=== PATIENT | female | born 1990 | race Asian ===

== ENCOUNTER 2020-10-21 07:40 | Inpatient (IN) ==
[2020-10-21] MEDS ORDERED: LACTATED RINGER'S 500 ML IV ONE (11:07)
[2020-10-21] MEDS ORDERED: LACTATED RINGER'S 1,000 ML IV SCH (11:15)
[2020-10-21] MEDS ORDERED: PROMETHAZINE HCL INJ 25 MG/ML 1 ML VIAL IM STA (11:16)
[2020-10-21] MEDS ORDERED: MoRPHine SULFATE 10 MG/ML CARP/VIAL IM STA (11:17)
--- NOTE | 2020-10-21 11:20 | History & Physical Report ---
Date of Service October 21, 2020 Assessment & Plan (1) Prolonged latent phase of labor: (2) with 38 completed weeks gestation: Patient is refusing to leave. She notes she can't go home, can't rest, too painful. Continues to ask for an epidural. My conversation with them occurred using an spanish interpreter/translator via the ipad. Discussed that at 38 6/7 weeks with reassuring fetus , there is no indication for augmentation given concerns for flm. We discussed that she cannot have an epidural until she is in labor. discussed I could send her home with a Vistaril home pack. She notes she just can't do that. Offered her a therapeutic morphine rest. Discussed that the contractions for labor must be closer, at least 5 min apart or less, lasting for at least a minute, and must be much more painful. She notes she just cannot do that. Discussed r/b of therapeutic rest. She wishes to do that. Fetus is category one. History of Present Illness Chief Complaint: painful contractions Primary Care Provider: Sarita Awad MD Patient is a 30yoRussianf with IUP at 38 6/7 weeks who presents to labor and delivery unannounced c/o contractions. Notes started at 1:30 this am. NOtes a 10/10 since then. Unable to sleep. No rest. no vb/lof. +fm. complicated by poorly compliant treatment of GDM. 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 Had genetics and mfm consult and did not have an amnio. Patient was monitored well over two hours. She has very irregular contractions q5-10 min, palpate mild but she is writhing all over the bed. Patient notes she is unable to go home with this and asking for an epidural. Allergies Allergy/AdvReac Type Severity Reaction Status Date / Time No Known Allergies Allergy Verified 10/17/20 10:58 Home Medications Medication Instructions Recorded Confirmed Type prenat.vits,brad,[id number] 1 tab PO DAILY 03/14/20 10/21/20 History acetone (urine) test #50 ea 07/07/20 10/17/20 Rx blood sugar diagnostic #150 ea 07/07/20 10/17/20 Rx blood-glucose meter #1 ea 07/07/20 10/17/20 Rx lancets 33 gauge #150 ea 07/07/20 10/17/20 Rx breast pump #1 ea 09/06/20 10/17/20 Rx Compression stockings #2 ea 10/17/20 10/17/20 Rx Patient History Medical History Acid reflux Encounter for anatomic survey Gestational diabetes mellitus (GDM) affecting first Family History Aunt Diabetes Father Stomach cancer Social History Smoking Status: Never smoker Hx Alcohol Use: No Hx Substance Use: No Preferred Language: Albanian Communication Ability: Effective Thermal Technician Required: No Beliefs That Will Affect Care: None marital status: marital status details: Rylee Virgen (30) [phone] Current Living Situation: Spouse Current Living Situation Comment: lives with spouse, no pets current occupational status: employed 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 [employer] Other Information That Helps Us Care for You: No Feels Safe at Home: Yes Safety Concerns: Feels Safe At This Time OB History g1--present 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
[2020-10-21] MEDS ORDERED: LACTATED RINGER'S 1,000 ML IV PRN (11:56)
[2020-10-21] MEDS ORDERED: OXYTOCIN 30 UNITS/500 ML BAG IV PRN ×3 (11:56→22:53)
[2020-10-21] MEDS ORDERED: ePHEDrine sulfate 50 MG/ML AMP ONE (12:08)
[2020-10-21] MEDS ORDERED: SODIUM CHLORIDE 0.9% INJ 10 ML VIAL ONE (12:08)
[2020-10-21] MEDS ORDERED: BUPIVACAINE 0.25% 30 ML VIAL ONE (12:09)
[2020-10-21] MEDS ORDERED: fentaNYL citrate 100 MCG/2 ML VIAL ONE (12:09)
[2020-10-21] MEDS ORDERED: fentaNYL 2MCG/ML ROPIVACAINE 1.25MG/ML 100 ML BAG EPI ONE (12:10)
--- NOTE | 2020-10-21 12:14 | Labor Progress Brief Note ---
Date of Service October 21, 2020 Subjective Patient continues to be very uncomfortable Assessment & Plan (1) with 38 completed weeks gestation: Admission and Anticipated Discharge Date Admission Date: October 21, 2020 Given that the patient has shown cervical change, will admit for labor. Epidural. Pitocin/arom as indicated. fetus category one. Anticipate . Physical Exam Constitutional: WD/WN, vitals as above Psychiatric: A+Ox3, euthymic affect Genitourinary: cx--3-4/90/-2 toco--irregular efm--130s with mod variability, accels to 160s, no decels Results & Data ([facility]) Vital Signs (Past 12 Hours) Vital Signs Temp Pulse Resp BP 10/21/20 11:37 37.4 C 77 18 120/65 10/21/20 07:53 36.7 C 20 Coding Level of Care Code None Diagnoses with 38 completed weeks gestation Z3A.38
[2020-10-21 12:31] LABS: Hematocrit (blood only) 42.9 % (37-47); Mean Corpuscular Hemoglobin 33.6 pg (25-34); Mean Corpuscular Volume 96.2 fL (80-100); Mean Platelet Volume 10.7 fL (7.4-10.4); Platelet Count 165 K/uL (130-400); RDW Coefficient of Variation 14.9 % (11.5-14.5); RDW Standard Deviation 52.7 fL (36.4-46.3); Red Blood Count 4.46 M/uL (4.2-5.4); White Blood Count 20.23 K/uL (4.8-10.8)
[2020-10-21] MEDS ORDERED: ONDANSETRON INJ 2 MG/ML 2 ML VIAL IV PRN (12:51)
[2020-10-21] MEDS ORDERED: ePHEDrine sulfate 50 MG/ML AMP IV PRN (12:51)
[2020-10-21] MEDS ORDERED: NALOXONE HCL 1 MG in SODIUM CHLORIDE 0.9% 1000ML 1,000 ML IV PRN (12:51)
[2020-10-21] MEDS ORDERED: diphenhydrAMINE 50 MG/ML VIAL IV PRN (12:51)
[2020-10-21] MEDS ORDERED: fentaNYL 2MCG/ML ROPIVACAINE 1.25MG/ML 100 ML BAG EPI PRN (12:51)
[2020-10-21] MEDS ORDERED: NALOXONE HCL 0.4 MG/1 ML VIAL/CARP IV PRN (12:51)
--- NOTE | 2020-10-21 12:56 | Anesthesiology Consultation ---
Date of Service October 21, 2020 Covid 19 negative today. Assessment & Plan Chart Review Chart Review: Patient NOT seen in Pre Admission Testing and Acceptable Risk for Labor Epidural Consults Requested none ASA ASA2 Proposed Anesthesia Anesthesia Type: Labor Epidural and CSE Risk / Benefits Reviewed With: PT / POA / Parent / Guardian, Accepts Plan and Informed Consent Obtained History Height/Weight Height: 5 ft 6.93 in Weight: 73.936 kg Allergies Allergy/AdvReac Type Severity Reaction Status Date / Time No Known Allergies Allergy Verified 10/17/20 10:58 Medications Home Medications Medication Instructions Recorded Confirmed Last Taken prenat.vits,brad,zbb-tbgt-wuccs 1 tab PO DAILY 03/14/20 10/21/20 10/20/20 20:00 acetone (urine) test #50 ea 07/07/20 10/17/20 Unknown blood sugar diagnostic #150 ea 07/07/20 10/17/20 Unknown blood-glucose meter #1 ea 07/07/20 10/17/20 Unknown lancets 33 gauge #150 ea 07/07/20 10/17/20 Unknown breast pump #1 ea 09/06/20 10/17/20 Unknown Compression stockings #2 ea 10/17/20 10/17/20 Unknown Active Medications Generic Name Dose Route Start Last Admin Trade Name Freq PRN Reason Stop Dose Admin Lactated Ringer's 1,000 mls @ 125 mls/hr 10/21/20 11:15 10/21/20 11:49 Lr IV 11/20/20 11:14 999 mls/hr .Q8H GIOVANNI Administration NPO Date Last Intake of Fluids: 10/21/20 Time Last Intake of Fluids: 12:00 Date Last Intake of Solids: 10/20/20 Time Last Intake of Solids: 21:00 Past Medical History Medical History Acid reflux Encounter for anatomic survey Gestational diabetes mellitus (GDM) affecting first Exercise / Class Metabolic Activity II 4-5 Yardwork/Stairs/Walk up hill Past Family History Family History Aunt Diabetes Father Stomach cancer Past Anesthesia History No Hx of Anesthesia Complications and No Family Hx of Anesthesia Complications History of PONV No Hx of PONV and No Hx of Motion Sickness Social History Smoking Status: Never smoker Hx Alcohol Use: No Hx Substance Use: No Review of Systems no chest pain or sob Physical Exam Vital Signs Last Vital Signs Temp 37.4 C 10/21/20 11:37 Pulse 82 10/21/20 12:54 Resp 18 10/21/20 11:37 BP 137/97 10/21/20 12:54 Pulse Ox 99 10/21/20 12:53 ENMT Mouth: no TMJ abnormality Thyromental Distance: > or= 3.5 Finger Breadths Mallampati Class: II Neck normal visual inspection Respiratory normal respiratory effort Auscultation: lungs clear to auscultation bilaterally Cardiovascular Rate/Rhythm: regular rate and regular rhythm Musculoskeletal Spine: normal cervical ROM Neurologic moves all extremities Psychiatric Orientation: alert and oriented x 3 Testing Laboratory Results 10/21/20 12:19
--- NOTE | 2020-10-21 15:04 | Labor Progress Brief Note ---
Date of Service October 21, 2020 Subjective comfortable with epidural Assessment & Plan (1) Normal labor: Admission and Anticipated Discharge Date Admission Date: October 21, 2020 Making progress despite poor contraction pattern. Will start pitocin to get a better contractions pattern. I cannot palpate a membrane. We have seen no fluid, but I think she is ruptured. On questioning, ? lof at 3-4am? Noneth eless, she is laboring and fetus is category one. anticipate . Physical Exam Constitutional: WD/WN, vitals as above Psychiatric: A+Ox3, euthymic affect Genitourinary: cx--5/100/-1 toco--difficult tracing, picking up occasional contractions. efm--125 with mod varibility, accels to 160s, no decels Results & Data ([facility]) Vital Signs (Past 12 Hours) Vital Signs Temp Pulse Resp BP Pulse Ox 10/21/20 14:58 84 97 10/21/20 14:53 82 99 10/21/20 14:48 76 98 10/21/20 14:43 76 119/67 97 10/21/20 14:38 75 98 10/21/20 14:33 81 125/67 98 10/21/20 14:28 78 98 10/21/20 14:23 83 98 10/21/20 14:22 81 115/69 10/21/20 14:18 79 98 10/21/20 14:13 94 H 121/67 97 10/21/20 14:08 92 H 96 10/21/20 14:03 93 H 97 10/21/20 14:02 91 H 134/72 10/21/20 13:58 86 97 10/21/20 13:53 96 H 97 10/21/20 13:52 95 H 117/67 10/21/20 13:48 87 97 10/21/20 13:43 85 99 10/21/20 13:42 83 108/59 L 10/21/20 13:38 87 98 10/21/20 13:33 90 133/72 98 10/21/20 13:28 94 H 98 10/21/20 13:23 87 98 10/21/20 13:20 86 110/64 10/21/20 13:19 85 89 L 10/21/20 13:18 92 H 99 10/21/20 13:16 85 117/65 10/21/20 13:13 88 100 10/21/20 13:12 83 115/59 L 10/21/20 13:08 81 134/78 99 10/21/20 13:04 81 136/75 10/21/20 13:03 79 100 10/21/20 13:00 37.0 C 85 18 136/66 10/21/20 12:58 71 100 10/21/20 12:54 82 137/97 10/21/20 12:53 81 99 10/21/20 11:37 37.4 C 77 18 120/65 10/21/20 07:53 36.7 C 20 Coding Level of Care Code None Diagnoses Normal labor O80; Z37.9
--- NOTE | 2020-10-21 17:57 | Labor Progress Brief Note ---
Date of Service October 21, 2020 Subjective comfortable Assessment & Plan (1) Normal labor: Admission and Anticipated Discharge Date Admission Date: October 21, 2020 labor down for about an hour and then plan to begin pushing. fetus category one. anticipate . Physical Exam Constitutional: WD/WN, vitals as above Psychiatric: A+Ox3, euthymic affect Genitourinary: cx--c/c/+1 toco--q2-3, pit at 8 efm--120s with mod variaiblity, accels to 160s, no decels Results & Data ([facility]) Vital Signs (Past 12 Hours) Vital Signs Temp Pulse Resp BP Pulse Ox 10/21/20 17:53 91 H 98 10/21/20 17:48 86 98 10/21/20 17:47 90 120/73 10/21/20 17:43 91 H 98 10/21/20 17:42 37.5 C 18 10/21/20 17:38 83 98 10/21/20 17:33 83 98 10/21/20 17:28 89 98 10/21/20 17:23 91 H 97 10/21/20 17:18 87 97 10/21/20 17:17 100 H 127/69 10/21/20 17:13 90 98 10/21/20 17:08 91 H 98 10/21/20 17:03 91 H 97 10/21/20 16:58 90 96 10/21/20 16:53 94 H 97 10/21/20 16:48 97 H 127/67 97 10/21/20 16:43 96 H 98 10/21/20 16:38 88 98 10/21/20 16:33 85 97 10/21/20 16:28 99 H 98 10/21/20 16:23 90 97 10/21/20 16:18 93 H 119/74 98 10/21/20 16:13 84 97 10/21/20 16:08 85 97 10/21/20 16:03 81 97 10/21/20 15:58 82 97 10/21/20 15:53 83 97 10/21/20 15:49 37.3 C 68 18 120/70 10/21/20 15:48 72 97 10/21/20 15:43 73 96 10/21/20 15:38 72 96 10/21/20 15:33 72 95 10/21/20 15:28 76 96 10/21/20 15:23 77 97 10/21/20 15:18 77 97 10/21/20 15:17 80 119/69 10/21/20 15:13 74 98 10/21/20 15:08 79 98 10/21/20 15:03 81 97 10/21/20 14:58 84 97 10/21/20 14:53 82 99 10/21/20 14:48 76 98 10/21/20 14:43 76 119/67 97 10/21/20 14:38 75 98 10/21/20 14:33 81 125/67 98 10/21/20 14:28 78 98 10/21/20 14:23 83 98 10/21/20 14:22 81 115/69 10/21/20 14:18 79 98 10/21/20 14:13 94 H 121/67 97 10/21/20 14:08 92 H 96 10/21/20 14:03 93 H 97 10/21/20 14:02 91 H 134/72 10/21/20 13:58 86 97 10/21/20 13:53 96 H 97 10/21/20 13:52 95 H 117/67 10/21/20 13:48 87 97 10/21/20 13:45 16 10/21/20 13:43 85 99 10/21/20 13:42 83 108/59 L 10/21/20 13:38 87 98 10/21/20 13:33 90 133/72 98 10/21/20 13:30 20 10/21/20 13:28 94 H 98 10/21/20 13:23 87 98 10/21/20 13:20 86 110/64 10/21/20 13:19 85 89 L 10/21/20 13:18 92 H 99 10/21/20 13:16 85 117/65 10/21/20 13:13 88 100 10/21/20 13:12 83 115/59 L 10/21/20 13:08 81 134/78 99 10/21/20 13:04 81 136/75 10/21/20 13:03 79 100 10/21/20 13:00 37.0 C 85 18 136/66 10/21/20 12:58 71 100 10/21/20 12:54 82 137/97 02/12/21 12:53 81 99 10/21/20 11:37 37.4 C 77 18 120/65 10/21/20 07:53 36.7 C 20 Coding Level of Care Code None Diagnoses Normal labor O80; Z37.9
[2020-10-21] MEDS ORDERED: oxyCODONE/ACETAMINOPHEN 5mg/325mg TAB PO PRN (20:22)
[2020-10-21] MEDS ORDERED: ACETAMINOPHEN 325 MG TAB PO PRN (20:22)
--- NOTE | 2020-10-21 20:25 | Delivery Summary ---
Vaginal Delivery Summary Date of Service October 21, 2020 Pre-operative Diagnosis: at 38 6/7 weeks active labor Post-operative Diagnosis: same Procedure: epidural pitocin augmentation bilateral labial and second degree laceration with repair EBL: 400cc Anesthesia: epidural Procedure: The patient pushed for about 40 minutes to deliver a viable female infant in nupur position. A loose nuchal cord was reduced easily and the rest of the was then delivered without difficulty. The baby was vigorous. The nose and mouth were bulb suctioned and the was placed in the maternal abdomen for drying and attention. Cord was clamped and cut at one minute of life. Cord blood and segment obtained. Placenta delivered spontaneous, intact with a three vessel cord. Cervix/sulci/rectum were intact. A second degree perineal laceration and bilateral labial lacs were repaired in the normal st andard fashion. Hemostasis obtained with dilute pitocin and fundal massage. Apgars were 8/9. Mother and baby doing well at the end of the delivery. Vaginal Delivery Summary and 2nd Degree [facility] [place] Delivery Charge Delivery Type Details: and 2nd Degree LAC
--- NOTE | 2020-10-21 22:22 | Anesthesia Procedure Note ---
Date of Service October 21, 2020 Anesthesia Post Epidural Note Vital Signs Vital Signs: Temp Pulse Resp BP Pulse Ox 37.3 C 93 H 18 110/61 99 10/21/20 19:15 10/21/20 22:16 10/21/20 21:45 10/21/20 22:16 10/21/20 20:48 Pain Intensity Bilateral Abdomen: Pain Intensity: 0 Notes Mental Status: alert / awake / arousable and participated in evaluation Nausea / Vomiting: adequately controlled Pain: adequately controlled Airway Patency, RR, SpO2: stable & adequate BP & HR: stable & adequate Hydration State: stable & adequate Neuraxial Anesthesia: was administered and sensory block is resolving Anesthetic Complications: no major complications apparent and Pt Satisfied with anesthetic care Epidural: Removed without complications and With tip intact
[2020-10-21] MEDS ORDERED: BENZOCAINE 20% AER SPR 82.5 GM CAN EXT ONE (22:51)
[2020-10-21] MEDS ORDERED: BENZOCAINE 20% AER SPR 82.5 GM CAN EXT PRN (22:53)
[2020-10-21] MEDS ORDERED: HYDROCORTISONE ACETATE 25 MG SUPP PR PRN (22:53)
[2020-10-21] MEDS ORDERED: SUPERCREAM 0.870% 15 GM JAR EXT PRN (22:53)
[2020-10-21] MEDS ORDERED: DIPHTHERIA/TETANUS/PERTUSSIS 0.5 ML SYR/VIAL IM ONE (22:53)
[2020-10-21] MEDS ORDERED: bisacodyL 10 MG SUPP PR PRN (22:53)
[2020-10-21] MEDS: IBUPROFEN 600 MG TAB PO PRN (22:54)
[2020-10-22] MEDS: DOCUSATE SODIUM 100 MG CAP PO SCH ×3 (02:06→21:01)
[2020-10-22] MEDS: IBUPROFEN 600 MG TAB PO PRN ×4 (03:34→21:01)
[2020-10-22 06:46] LABS: Hemoglobin 11.9 g/dL (12.0-16.0)
--- NOTE | 2020-10-22 07:25 | Obstetrical Progress Note ---
Date of Service October 22, 2020 Assessment & Plan (1) Vaginal delivery: Doing well. Routine care. Day #:: 1 Subjective Ambulation: ambulating normally Voiding: no voiding problems Passing Gas:: Yes Lochia:: Small Feeding Type:: breast feeding Noting uterine cramping Physical Exam Constitutional WD/WN, vitals as above Gastrointestinal (Abdomen) soft, nt, nd ff/nt at 1 below u Psychiatric A+Ox3, euthymic affect Results & Data ([facility]) Vital Signs (Past 12 Hours) Vital Signs Temp Pulse Pulse Resp BP BP Pulse Ox 10/22/20 03:30 36.8 C 89 18 106/68 97 10/21/20 23:40 36.9 C 77 18 115/71 98 10/21/20 22:16 93 H 110/61 10/21/20 22:15 18 10/21/20 22:01 85 119/74 10/21/20 21:47 93 H 111/77 10/21/20 21:45 18 10/21/20 21:32 83 114/72 10/21/20 21:16 82 114/58 L 10/21/20 21:15 18 10/21/20 21:04 87 121/59 L 10/21/20 21:00 18 10/21/20 20:48 81 99 10/21/20 20:46 77 129/69 10/21/20 20:45 18 10/21/20 20:43 81 99 10/21/20 20:38 81 98 10/21/20 20:33 83 98 10/21/20 20:31 83 139/56 L 10/21/20 20:30 18 10/21/20 20:28 84 98 10/21/20 20:23 86 97 10/21/20 20:18 84 97 10/21/20 20:16 95 H 131/73 10/21/20 20:15 18 10/21/20 20:13 90 97 10/21/20 20:08 81 97 10/21/20 20:03 94 H 96 10/21/20 19:59 102 H 91 10/21/20 19:58 98 H 96 10/21/20 19:53 93 H 97 10/21/20 19:50 96 H 91 10/21/20 19:48 104 H 96 10/21/20 19:47 95 H 133/68 10/21/20 19:43 92 H 99 10/21/20 19:38 96 H 99 10/21/20 19:37 101 H 91 10/21/20 19:33 97 H 98 10/21/20 19:28 88 99
[2020-10-22] MEDS: PRENATAL VITAMIN 1 TAB PO SCH (09:00)
[2020-10-22] MEDS ORDERED: bisacodyL 5 MG TABEC PO SCH (20:00)
[2020-10-23] MEDS: IBUPROFEN 600 MG TAB PO PRN ×2 (01:41→08:48)
--- NOTE | 2020-10-23 08:20 | Obstetrical Progress Note ---
Date of Service October 23, 2020 Assessment & Plan (1) Vaginal delivery: 30 yo PP2 from , doing well -Meeting all pp milestones, stable for discharge home today -B+/rubella immune/ -f/u 6 weeks for appt Day #:: 2 Subjective Ambulation: ambulating normally Voiding: no voiding problems Passing Gas:: Yes Diet Tolerance:: regular diet Lochia:: Small Feeding Type:: breast feeding Pain well managed with medication Review of Systems Denies fevers, chills, n/v, DUFFY, CP, SOB Physical Exam Constitutional WD/WN, vitals as above no acute distress Respiratory normal respiratory effort, lungs clear to auscultation Cardiovascular RRR, no murmur, no edema Gastrointestinal (Abdomen) Percussion/Palpation: abdomen soft; abdomen nontender fundus firm at umbilicus and NT Musculoskeletal BLE symmetric, nonerythematous, nontender, no edema Psychiatric A+Ox3, euthymic affect Results & Data ([facility]) Vital Signs (Past 12 Hours) Vital Signs Temp Pulse Resp BP 10/23/20 07:20 98.2 F 73 18 113/76 10/23/20 01:15 98.4 F 74 20 111/69
[2020-10-23] MEDS: PRENATAL VITAMIN 1 TAB PO SCH (08:48)
[2020-10-23] MEDS: DOCUSATE SODIUM 100 MG CAP PO SCH (08:48)
== END 2020-10-23 16:20 | disposition home or self-care (01) | DRG 807 ==
LOC: OPB 07:40 → 4S1 07:45 → 4S2 23:33